=== PATIENT | male | born 1990 | race Caucasian/White ===

== ENCOUNTER 2020-05-14 09:23 | Emergency (ER) | payer OTHER ==
[2020-05-14] MEDS ORDERED: Tetracaine HCl/PF 0.5% 4 ML Bottle EYERT ONE (09:36)
--- NOTE | 2020-05-14 09:54 | EDM.PDOC ---
ED HPI GENERAL MEDICAL PROBLEM - General Chief Complaint: Eye Problems Stated Complaint: HIT IN THE EYE Time Seen by Provider: 05/14/20 09:40 - History of Present Illness INITIAL COMMENTS - FREE TEXT/NARRATIVE: Otherwise well 30-year-old male presenting with right eye pain and tearing. 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 The discomfort worsens with bright lights. He reports a history of corneal abrasion on the left eye but denies any right eye history. R eye Pain Score (Numeric/FACES): 3 - Related Data Allergies Allergy/AdvReac Type Severity Reaction Status Date / Time No Known Allergies Allergy Verified 05/14/20 09:37 Home Meds: Home Meds . [No Known Home Meds] 05/14/20 [History] Past Medical History - Past Health History Medical/Surgical History: Denies Medical/Surgical History - Past Surgical History Other Respiratory Surgeries/Procedures: brief episode of exercise induced asthma as a child Social & Family History - Family History Family Medical History: No Pertinent Family History ED ROS GENERAL - Review of Systems Review Of Systems: See Below Free Text/Narrative/Comment: General: No fever. Eyes: Per HPI ENT: No sore throat. Neck: No neck stiffness. Neurologic: No headache. ED EXAM GENERAL W FULL EYE - Physical Exam Exam: See Below Text/Narrative:: General Appearance: No acute distress, appears comfortable Skin: No rash HEENT: Normocephalic/atraumatic, sclera anicteric, mucous membranes moist, significant right eye tearing but no conjunctival injection normal lids and lashes bilaterally pupils PERRLA bilaterally significant photosensitivity in the right eye but no consensual photosensitivity from the left. Tetracaine significantly improved symptoms slit-lamp exam reveals a significant corneal abrasion from the 7:00 to 9 o'clock position. No visible retained foreign body negative Kiana sign, acuities R 20/25, L 20/20 Neck: Normal range of motion Neurologic: Awake, alert, no obvious deficits, moving all extremities Psychiatric: Appropriate, cooperative Course - Vital Signs Last Recorded V/S: Last Vital Signs Temp 96.2 F L 05/14/20 09:30 Pulse 79 05/14/20 09:30 Resp 18 05/14/20 09:30 BP Pulse Ox 97 05/14/20 09:30 - Orders/Labs/Meds Meds: Medications Discontinued Medications Generic Name Dose Route Start Last Admin Trade Name Raúl PRN Reason Stop Dose Admin Tetracaine HCl 1 ml 05/14/20 09:36 05/14/20 10:01 Tetracaine Hcl/Pf 0.5% 4 Ml Bottle EYERT 05/14/20 09:37 1 ml ASDIRECTED ONE Administration Departure - Departure Time of Disposition: 10:17 Disposition: Home, Self-Care 01 Condition: Good Clinical Impression: Corneal abrasion Qualifiers: Encounter type: subsequent encounter Laterality: right Qualified Code(s): S05.01XD - Injury of conjunctiva and corneal abrasion without foreign body, right eye, subsequent encounter - Discharge Information *PRESCRIPTION DRUG MONITORING PROGRAM REVIEWED*: Not Applicable *COPY OF PRESCRIPTION DRUG MONITORING REPORT IN PATIENT MORRIS: Not Applicable Instructions: Corneal Abrasion, [id number] Referrals: Booker Petit MD [Ordering Only Provider] - Forms: ED Department Discharge Additional Instructions: Please apply the erythromycin ointment to your eye 3 times daily. Please be sure to call the ophthalmology office first thing Saturday morning for follow-up appointment. If you have worsening pain, worsening vision or any other new symptoms that concern you please return to the ER. The following information is given to patients seen in the emergency department who are being discharged to home. This information is to outline your options for follow-up care. We provide all patients seen in our emergency department with a follow-up referral. The need for follow-up, as well as the timing and circumstances, are variable depending upon the specifics of your emergency department visit. If you don't have a primary care physician on staff, we will provide you with a referral. We always advise you to contact your personal physician following an emergency department visit to inform them of the circumstance of the visit and for follow-up with them and/or the need for any referrals to a consulting specialist. The emergency department will also refer you to a specialist when appropriate. This referral assures that you have the opportunity for follow-up care with a specialist. All of these measure are taken in an effort to provide you with optimal care, which includes your follow-up. Under all circumstances we always encourage you to contact your private physician who remains a resource for coordinating your care. When calling for follow-up care, please make the office aware that this follow-up is from your recent emergency room visit. If for any reason you are refused follow-up, please contact the [facility] Emergency Department at and asked to speak to the emergency department charge nurse. Sepsis Event Note (ED) - Evaluation Sepsis Screening Result: No Definite Risk - Focused Exam Vital Signs: Vital Signs Temp Pulse Resp Pulse Ox 05/14/20 09:30 96.2 F L 79 18 97 - Assessment/Plan Assessment:: 30yoM with history and exam findings consistent with right eye corneal abrasion. Traumatic iritis needs to be considered given the significant photophobia. Acuities are good. No findings that suggest globe rupture no findings that suggest retained foreign body. No cyst minus. Will discuss with ophthalmology hopeful for discharge with follow-up. 1015: We are unable to get a hold of Dr. Petit at this time. Given the exam findings that are clearly consistent with corneal abrasion erythromycin ointment was provided patient understands the importance of following up with ophthalmology.
[2020-05-14] MEDS ORDERED: Erythromycin Base 0.5% Ophth Oint 1 GM Tube EYERT ONE (10:16)
[2020-05-14 10:23] VITALS: BP 130/80; PULSE 81
== END 2020-05-14 10:28 | disposition home or self-care (01) ==
LOC: MW.ED 09:23
DX: S05.01XA Injury of conjunctiva and corneal abrasion without foreign body, right eye, initial encounter (principal); W22.8XXA Striking against or struck by other objects, initial encounter; Y92.89 Other specified places as the place of occurrence of the external cause; Y99.0 Civilian activity done for income or pay
CPT/HCPCS: 99283; A9270

== ENCOUNTER 2020-09-21 18:45 | Emergency (ER) | payer SELFPAY ==
[2020-09-21] MEDS ORDERED: Iopamidol 755 MG/ML 500 ML Multipack Bottle IVPUSH STA (20:34)
--- NOTE | 2020-09-21 21:05 | CT ---
Indication: Trouble swallowing solids x3 weeks Technique: Volumetric multidetector CT images of the cervical soft tissues were obtained after the administration of low osmolar intravenous contrast. 100 cc Isovue 370 low osmolar intravenous contrast Comparison: None available. Findings: The partially visualized brain parenchyma is normal in attenuation without evidence of abnormal enhancement. The orbits and their contents are within normal limits. There is mild to moderate chronic mucosal thickening seen within the paranasal sinuses. The mastoid air cells are clear. The nasopharynx is unremarkable. The fossae of Rosenmuller are clear. The oropharynx is unremarkable. The hypopharynx is clear. The deep spaces of the neck demonstrate a likely deep sebaceous cysts within the right posterior paraspinous soft tissues. The vocal folds are nonthickened with symmetrical appearance. The thyroid gland is normal in attenuation. There is no evidence of pathologically enlarged cervical lymph node. The jugular veins are patent. The carotid arteries demonstrate no significant atherosclerotic narrowing. The lung apices are clear. The cervical vertebral body heights are grossly maintained with straightening of the normal cervical lordosis. There is no significant spondylolisthesis. Impression: No evidence of mass or pathologically enlarged lymph node. Consider follow-up for swallowing difficulty with outpatient speech pathology evaluation for assessment of dysphagia with solids. Please note that all CT scans at this facility use dose modulation, iterative reconstruction, and/or weight-based dosing when appropriate to reduce radiation dose to as low as reasonably achievable. Dictated by Ernst Villalba MD @ 09/21/2020 9:03:[address] Ernst Villalba @ Sep 21 2020 9:03PM
--- NOTE | 2020-09-21 21:55 | EDM.PDOC ---
ED HPI GENERAL MEDICAL PROBLEM - General Chief Complaint: ENT Problem Stated Complaint: DIFFICULTY SWALLOWING HARD FOODS Time Seen by Provider: 09/21/20 19:12 - History of Present Illness INITIAL COMMENTS - FREE TEXT/NARRATIVE: CHIEF COMPLAINT(S): Difficulty swallowing solid HISTORY OF PRESENT ILLNESS: This is a 30-year-old man without any significant past medical history who comes to the emergency department with a chief co mplaint of the difficulty swallowing solids. The patient states that for the last 2 to 3 months he has been experiencing a tickle on the right side of his throat and what spot. He states that intermittently it felt like food was getting stuck in his area and then it would resolve after approximately 1 hour. He states that for the last 3 weeks he has been having difficulty swallowing foods. He can swallow anything that is liquid but seems to have trouble when it is solid. He denies any weight loss, night sweats. He denies any pain at all whatsoever just feels like it is difficult to swallow. He denies any hematemesis, bilious emesis, abdominal pain. He states that he took some Mucinex and that seemed to help it. He denies any other symptoms. REVIEW OF SYSTEMS: Constitutional: Denies fever, chills. Ears, Nose, Mouth, & Throat: Positive for difficulty swallowing. Denies sore throat Cardiovascular: Denies chest pain Respiratory: Denies shortness of breath Gastrointestinal: Abdominal pain, nausea, vomiting, diarrhea, hematochezia, hematemesis, bilious emesis PAST MEDICAL HISTORY: As per history of present illness and as reviewed below otherwise noncontributory. SURGICAL HISTORY: As per history of present illness and as reviewed below otherwise noncontributory. SOCIAL HISTORY: As per history of present illness and as reviewed below otherwise noncontributory. FAMILY HISTORY: As per history of present illness and as reviewed below otherwise noncontributory. EXAMINATION OF ORGAN SYSTEMS/BODY AREAS: Constitutional: Blood pressure is 133/89, heart rate 92, respiratory rate 18 with an oxygen saturation 96% on room air. Temperature 35.8 temporal General: He overall well-appearing man who is in no acute distress Psychiatric: Appropriate mood and affect. Eyes: No scleral icterus or conjunctival erythema ENMT: Moist mucous membranes. No pharyngeal erythema no uvular or tongue swelling. Posterior pharynx without any tonsillar exudates or swelling. No erythema. No evidence of postnasal drip. No stridor, drooling, or trismus. There is no anterior cervical or posterior cervical lymphadenopathy. No submandibular lymphadenopathy. There is no evidence of goiter. Neck is supple and nontender. Cardiovascular: Regular, rate, and rhythm. No gallops, murmurs, or rubs. Bilateral upper extremity pulses symmetric and intact. No peripheral edema. No JVD. Respiratory: Lungs clear to auscultation bilaterally. No wheezes, rales, or rhonchi. Gastrointestinal: Soft, non-tender, non-distended. Normoactive bowel sounds Neurological: Alert, GCS 15 MEDICAL DECISION MAKING AND COURSE IN THE ED WITH INTERPRETATION/REVIEW OF DIAGNOSTIC STUDIES: This is a 30-year-old man without any significant past medical history who comes to the emergency department with a dysphagia to solids over the last 2 to 3 months. At this time I do not believe any labs or imaging are indicated. We will obtain a TSH and obtain a soft tissue neck CT. Patient is currently not in any pain therefore we will hold off on any pain medication at this time. Laboratory: TSH is normal at 1.16. The radiological images were viewed by myself along with reading the report from the radiologist. CT neck with contrast reveals mild to moderate chronic mucosal thickening within the paranasal sinuses. There are deep sebaceous cysts within the right posterior paraspinous soft tissues. Otherwise no evidence of mouth, pathological enlarged lymph node. After imaging I did discuss results with the patient. I discussed the importance of following up with ENT or primary care physician for further evaluation. He was given strict return precautions. He was amenable discharge and had no further questions DISPOSITION: The patient was discharged home in stable condition. The patient will follow up with primary care physician or ENT within 3 to 5 days CONDITION: Fair PROCEDURES: None FINAL IMPRESSION(S)/DIAGNOSES: 1. Subacute dysphagia to solids Mahamed Lawson M.D. throat Pain Score (Numeric/FACES): 1 - Related Data Allergies Allergy/AdvReac Type Severity Reaction Status Date / Time No Known Allergies Allergy Verified 09/21/20 19:09 Home Meds: Home Meds . [No Known Home Meds] 05/14/20 [History] Past Medical History - Past Health History Medical/Surgical History: Denies Medical/Surgical History Other Respiratory History: brief episode of exercise induced asthma as a child - Infectious Disease History Infectious Disease History: Reports: None - Past Surgical History Respiratory Surgical History: Reports: None Other Respiratory Surgeries/Procedures: brief episode of exercise induced asthma as a child Social & Family History - Family History Family Medical History: No Pertinent Family History - Tobacco Use Tobacco Use Status *Q: Never Tobacco User - Caffeine Use Caffeine Use: Reports: Soda - Recreational Drug Use Recreational Drug Use: No ED ROS GENERAL - Review of Systems Review Of Systems: See Below ED EXAM, GENERAL - Physical Exam Exam: See Below Course - Vital Signs Last Recorded V/S: Last Vital Signs Temp 36.3 C 09/21/20 22:15 Pulse 75 09/21/20 22:15 Resp 18 09/21/20 22:15 BP 119/64 09/21/20 22:15 Pulse Ox 97 09/21/20 22:15 - Orders/Labs/Meds Labs: Laboratory Tests 09/21/20 Range/Units 20:00 TSH, Ultra Sensitive 1.16 (0.36-3.74) uIU/mL Meds: Medications Discontinued Medications Generic Name Dose Route Start Last Admin Trade Name Raúl PRN Reason Stop Dose Admin Iopamidol 80 ml 09/21/20 20:34 09/21/20 20:34 Iopamidol 755 Mg/Ml 500 Ml Multipack Bottle IVPUSH 09/21/20 20:35 80 ml ONETIME STA Administration Departure - Departure Time of Disposition: 21:55 Disposition: Home, Self-Care 01 Condition: Fair Clinical Impression: Dysphagia - Discharge Information *PRESCRIPTION DRUG MONITORING PROGRAM REVIEWED*: No *COPY OF PRESCRIPTION DRUG MONITORING REPORT IN PATIENT MORRIS: No Instructions: Dysphagia Referrals: PCP,None [Primary Care Provider] - Forms: ED Department Discharge Additional Instructions: You were evaluated today on an emergent basis. At this time the image of your neck did not reveal any abnormalities. As discussed it is important to follow- up with your primary care physician for referral for ENT/speech to evaluate for swallowing abnormalities. Please return to the emergency department if you have any worsening of your inability to swallow, drooling, inability to open mouth, shortness of breath. ENT [phone] [facility] [address] [place] [id number] [facility] [address] [place] [address] The patient is informed of any results of their evaluation and diagnostic workup and all questions are answered. They are given discharge instructions and return precautions. The patient is stable for discharge. The patient states they understand and agree with the plan and that they will return if their symptoms get worse or if they have any new concerns. The following information is given to patients seen in the emergency department who are being discharged to home. This information is to outline your options for follow-up care. We provide all patients seen in our emergency department with a follow-up referral. The need for follow-up, as well as the timing and circumstances, are variable depending upon the specifics of your emergency department visit. If you don't have a primary care physician on staff, we will provide you with a referral. We always advise you to contact your personal physician following an emergency department visit to inform them of the circumstance of the visit and for follow-up with them and/or the need for any referrals to a consulting specialist. The emergency department will also refer you to a specialist when appropriate. This referral assures that you have the opportunity for follow-up care with a specialist. All of these measure are taken in an effort to provide you with optimal care, which includes your follow-up. Under all circumstances we always encourage you to contact your private physician who remains a resource for coordinating your care. When calling for follow-up care, please make the office aware that this follow-up is from your recent emergency room visit. If for any reason you are refused follow-up, please contact the [facility] Emergency Department at and asked to speak to the emergency department charge nurse. Sepsis Event Note (ED) - Evaluation Sepsis Screening Result: No Definite Risk
[2020-09-21 22:16] VITALS: BP 119/64; PULSE 75
== END 2020-09-21 22:16 | disposition home or self-care (01) ==
LOC: MW.ED 18:45
DX: R13.10 Dysphagia, unspecified (principal)
CPT/HCPCS: 36415; 70491; 84443; 99284; Q9967

== ENCOUNTER 2021-05-01 14:27 | Emergency (ER) | payer SELFPAY ==
[2021-05-01] MEDS ORDERED: Tetracaine HCl/PF 0.5% 4 ML Bottle EYEBOTH ONE (14:31)
[2021-05-01 15:29] VITALS: BP 141/87; PULSE 79
== END 2021-05-01 15:10 | disposition home or self-care (01) ==
LOC: MW.ED 14:27
DX: S05.01XA Injury of conjunctiva and corneal abrasion without foreign body, right eye, initial encounter (principal); W22.09XA Striking against other stationary object, initial encounter
CPT/HCPCS: 99283